=== PATIENT | male | born 1990 ===

== ENCOUNTER → 2021-04-15 | Outpatient (REF) ==
--- NOTE | 2021-04-15 15:07 | REP ---
INDICATION: PAIN. COMPARISON: None. TECHNIQUE: Four views FINDINGS: No acute fracture or destructive osseous lesion. The mortise is intact. IMPRESSION: No acute osseous abnormality <Electronically signed by Omer Moreira > 04/15/21 [id number]
--- NOTE | 2021-04-15 15:08 | REP ---
INDICATION: PAIN. COMPARISON: None. TECHNIQUE: Four views each foot FINDINGS: Bilateral: The joint spaces are symmetric and relatively well maintained. There is no evidence of acute fracture or destructive osseous lesion. IMPRESSION: Within normal limits bilateral. <Electronically signed by Omer Moreira > 04/15/21 [id number]
== END ==
LOC: M PLAIMG 14:19
PROVIDERS: ATTEND Internal Medicine
DX: M79.672 Pain in left foot (principal); M79.671 Pain in right foot